=== PATIENT | female | born 1940 | race Two or more races ===

== ENCOUNTER 2022-09-16 12:00 | Inpatient (IN) | payer OTHER ==
[~2022-09-16] VITALS: Ht 160 cm; Wt 76.7 kg
[2022-09-16] MEDS ORDERED: LIPITOR20 MG PO (13:08)
[2022-09-16] MEDS ORDERED: NEURONTIN800 MG PO (13:08)
[2022-09-16] MEDS ORDERED: COZAAR100 MG PO (13:08)
[2022-09-16] MEDS ORDERED: SYNTHROID75 MCG PO (13:08)
[2022-09-22] MEDS ORDERED: COZAAR100 MG PO (08:55)
[2022-09-22] MEDS ORDERED: TIROSINT50 MCG PO (08:55)
[2022-09-22] MEDS ORDERED: TRIJAR PO (08:55)
[2022-09-22] MEDS ORDERED: GABAP PO (08:56)
[2022-09-22] MEDS ORDERED: ATORVASTATIN CA20 MG PO (08:56)
[2022-09-22] MEDS ORDERED: HYDRALAZINE HCL25 MG PO (08:57)
[2022-09-22] MEDS ORDERED: SERTRALINE20 MG/1 ML PO (08:57)
[2022-09-22] MEDS ORDERED: OMEPRAZOLE20 MG (09:43)
[2022-09-22] MEDS ORDERED: ST. JOSEPH ASPI81 M2 (09:43)
[2022-09-22] MEDS ORDERED: VITAMIN D3250 MCG (09:43)
[2022-09-22] MEDS ORDERED: TRIJARDY XR 251 EACH (09:43)
== END 2022-09-24 16:41 | disposition home or self-care (01) | DRG 331 ==
LOC: O/R 09-22 06:19 → SURH 09-22 06:19
PROVIDERS: ADMIT Colon & Rectal Surgery; ATTEND Colon & Rectal Surgery
PROC: 0WQF4ZZ Repair Abdominal Wall, Percutaneous Endoscopic Approach (ICD-10-PCS; 2022-09-22)
PROC: 0DTF4ZZ Resection of Right Large Intestine, Percutaneous Endoscopic Approach (ICD-10-PCS; principal; 2022-09-22 11:30)
DX: D12.2 Benign neoplasm of ascending colon (principal); K57.30 Diverticulosis of large intestine without perforation or abscess without bleeding; E11.9 Type 2 diabetes mellitus without complications; R59.0 Localized enlarged lymph nodes; E78.00 Pure hypercholesterolemia, unspecified; Z20.822 Contact with and (suspected) exposure to COVID-19; Z79.4 Long term (current) use of insulin